=== PATIENT | male | born 1935 | race Caucasian/White ===

== ENCOUNTER 2019-10-06 15:38 | Inpatient (IN) ==
[2019-10-06] MEDS ORDERED: NS 1,000 ML IV ONE ×2 (15:44→15:55)
[2019-10-06] MEDS ORDERED: VITAMIN K IM ONE (15:44)
[2019-10-06] MEDS ORDERED: ZOFRAN IV ONE (15:45)
[2019-10-06] MEDS ORDERED: MORPHINE IV ONE (15:45)
[2019-10-06] MEDS ORDERED: SODIUM CHLORIDE 0.9% INJ ONE (15:45)
[2019-10-06] MEDS ORDERED: PEPCID IV ONE (15:45)
[2019-10-06] MEDS ORDERED: FLEET MINERAL OIL ENEMA PR ONE (16:31)
[2019-10-06 16:38] LABS: OCCULT BLOOD 1 NEGATIVE (NEGATIVE)
[2019-10-06 16:44] LABS: BASO# 0.02 X1000 (0.0-0.2); BASO% 0.3 % (0.0-0.8); EOS# 0.17 X1000 (0.0-0.7); EOS% 2.6 % (0.0-10.0); HEMATOCRIT 33.2 % (42.0-52.0); HEMOGLOBIN 9.9 g/dL (14.0-18.0); IMM GRAN# 0.02 X1000 (0.0-0.04); IMM GRAN% 0.3 % (0.0-0.5); LYMPH# 1.68 X1000 (1.2-3.4); LYMPH% 25.7 % (20.5-51.1); MCH 28.7 PG (27-31); MCHC 29.8 g/dL (33-37); MCV 96.2 FL (81-99); MONO# 0.59 X1000 (0.11-0.59); NEUT# 4.06 X1000 (1.4-6.5); NEUT% 62.1 % (42.2-75.2); PLT 165 X1000 (130-400); RBC 3.45 XMIL (4.7-6.1); RDW 16.4 % (11.5-14.5); WBC 6.54 X1000 (4.8-10.8)
[2019-10-06 16:54] LABS: INR 3.69; PROTIME 38.9 Seconds (11.0-16.0)
[2019-10-06 16:55] LABS: PTT 58.3 Seconds (22.3-41.8)
[2019-10-06 17:19] LABS: AGAP 13; ALBUMIN 3.2 g/dL (3.5-5.0); ALKALINE PHOSPHATASE 168 U/L (32-122); BUN 23 mg/dL (8-22); CALCIUM 8.9 mg/dL (8.8-10.2); CHLORIDE 106 mmol/L (98-107); COSMO 289; CREATININE 0.9 mg/dL (0.7-1.2); ESTIMATED GFR > 60; GLUCOSE 102 mg/dL (70-104); GOT 20 U/L (10-34); GPT 14 U/L (10-44); POTASSIUM 4.1 mmol/L (3.5-5.1); SODIUM 143 mmol/L (136-145); TCO2 24 mmol/L (25-35); TOTAL PROTEIN 6.5 g/dL (6.3-8.3)
--- NOTE | 2019-10-06 17:25 | EKG Report ---
Test Performed on : 10/06/2019 4:56:36 PM Test Reason : GI bleed Blood Pressure : / mmHG Vent. Rate : 081 BPM Atrial Rate : 076 BPM P-R Int : 000 ms QRS Dur : 186 ms QT Int : 498 ms P-R-T Axes : 000 -77 105 degrees QTc Int : 578 ms Ventricular-paced rhythm with frequent premature ventricular complexes. Abnormal ECG When compared with ECG of 23-MAY-2019 10:17, premature ventricular complexes. are now present Unconfirmed Result
--- NOTE | 2019-10-06 17:45 | PROVIDER DOCUMENTATION ---
This chart was entered by Joya Méndez Scribe, acting as scribe for Elbert Rodriguez MD. HPI-Abdominal Pain/GI Problem - General Stated Complaint: abd pain with rectal bleeding Time Seen by Provider: 10/06/19 15:38 Source: patient, EMS ([facility]) Allergies/Adverse Reactions: Patient Allergies Allergy/AdvReac Type Severity Reaction Status Date / Time amiodarone AdvReac SHORTNESS Verified 05/23/19 09:28 OF BREATH Home Medications: Home Medication List Medication Instructions Recorded Confirmed Last Taken Type Furosemide 40 mg PO DAILY PRN 06/28/14 10/06/19 12/11/15 07:00 History Levothyroxine Sodium 75 mcg PO DAILY 06/28/14 10/06/19 12/11/15 07:00 History Warfarin [Coumadin] 7 mg PO DIRECTED 10/23/18 10/06/19 Unknown History Ascorbic Acid [Vitamin C] 500 mg PO DAILY 10/06/19 10/06/19 Unknown History Atorvastatin Calcium 1 tab PO DAILY 10/06/19 10/06/19 Unknown History Carvedilol [Coreg] 1 tab PO DAILY 10/06/19 10/06/19 Unknown History Cholecalciferol (Vitamin D3) 1,000 unit PO DAILY 10/06/19 10/06/19 Unknown History [Vitamin D3] Famotidine [Pepcid] 1 tab PO BID 10/06/19 10/06/19 Unknown History Pantoprazole Sodium 1 tab PO DAILY 10/06/19 10/06/19 Unknown History Potassium Chloride 20 meq PO DIRECTED 10/06/19 10/06/19 Unknown History Sucralfate 1 tab PO 4XDAY 10/06/19 10/06/19 Unknown History Ubidecarenone [Coq-10] 200 mg PO DAILY 10/06/19 10/06/19 Unknown History Warfarin [Jantoven] 1 tab PO DAILY 10/06/19 10/06/19 Unknown History - History of Present Illness-ABD Nature of Presenting Problems: Pt is an 84 yowm brought into the ED by [facility] after his called because he had rectal bleeding after a hard bowel movement today. Pt his complaining of abdominal pain. pt is alert but pale in appearance. Abdominal Pain Onset Location: reports: generalized abdomen (Left side more than right) Quality of Pain: reports: aching Severity in ED: reports: mild Onset/Duration: reports: just prior to arrival Timing: reports: still present, constant Activities at Onset: reports: light activity Modifying Factors: improves with: defecating Associated Symptoms: reports: constipation. denies: cough, diarrhea, fever/chills, nausea, syncope, vomiting Last BM: this afternoon Rectal Bleeding: reports: bright red blood on paper Review of Systems - Adult - REVIEW OF SYSTEMS - ADULT Constitutional: denies: chills, fever Eyes: reports: no symptoms reported Ears, Nose, Mouth & Throat: reports: no symptoms reported Cardiovascular: denies: chest pain, syncope Respiratory: denies: cough, shortness of breath Gastrointestinal: reports: abdominal pain, constipation, rectal bleeding. denies: nausea, vomiting Genitourinary: reports: no symptoms reported Musculoskeletal: reports: no symptoms reported Integumentary: reports: no symptoms reported, see HPI Neurological: reports: no symptoms reported Psychiatric: reports: no symptoms reported Endocrine: reports: no symptoms reported Hematologic/Lymphatic: reports: no symptoms reported Allergic/Immunologic: reports: no symptoms reported All Other Systems: Reviewed and Negative Past History - Adult - PAST MEDICAL HISTORY-ADULT Review of Records: reports: Old Records Reviewed, Nursing Assessment Review, Medications Reviewed, Social history reviewed & non-contributory. Major Childhood Illnesses: reports: denies history Cardiovascular: reports: cardiac disease, HTN, heart valve problem, other (mechanical heart valve) Respiratory: reports: denies history Gastrointestinal: reports: GI bleed Obstetrical/Gynecological: reports: denies history Genitourinary: reports: denies history Musculoskeletal: reports: arthritis Neurological: reports: denies history, other (sleep apnea) Endocrine/Immune: reports: denies history Other Conditions: reports: denies history - PRIOR SURGERIES/PROCEDURES Surgical/Procedure History: reports: other (mechanical heart valve) - IMMUNIZATION STATUS Childhood Immunizations: See Nurse Assessment Flu Vaccine: See Nurse Assessment - FAMILY HISTORY Family History: reviewed, not pertinent - SOCIAL HISTORY Smoking: non-smoker Substance Use: denies Living Situation: family () Physical Exam-General - PHYSICAL EXAM-ADULT Initial Vital Signs Reviewed: Yes (hypotensive, otherwise stable) - CONSTITUTIONAL General Appearance: alert, no apparent distress, other (pale) - EYES Eyes: PERRL/EOMI, pale conjunctivae - HEAD, EARS, NOSE, MOUTH & THROAT HENMT: normocephalic/atraumatic, other (dry mucus membranes) - NECK Neck: non-tender, full range of motion - RESPIRATORY Respiratory: chest non-tender, lungs clear, no pleuratic chest pain, no respiratory distress, other (tachypneic) - CARDIOVASCULAR Cardiovascular: normal peripheral pulses, regular rate, rhythm, no edema, no g allop, no JVD, systolic murmur, other (metallic click heard best at apex) - GASTROINTESTINAL (ABDOMEN) Abdominal Exam: normal bowel sounds, soft, tenderness (generalized but left side more than right). negative: guarding, rebound, McBurney's point tenderness - GENITOURINARY Male Genitalia: normal genitalia, circumcised Rectal Exam: normal rectal tone, blood streaked stool, other (fecal impaction, hard stool, slight blood tinged liquid brown stool oozing around hard/chalky/brown stool) Hemoccult Exam: heme positive stool - LYMPHATIC Lymphatic: no adenopathy - MUSCULOSKELETAL Back Exam: normal inspection, no vertebral tenderness Extremity: normal range of motion, non-tender - SKIN Integumentary: ecchymosis (older, visible on arms and hands), pallor. negative: normal turgor (decreased) - PSYCHIATRIC Psych/Mental Status: normal thought content, normal thought process, oriented x 3, disheveled Progress - PLAN OF CARE/RESULTS Result Diagrams: 10/06/19 16:17 10/06/19 16:17 - REASSESSMENT Reassessment #1 Time Reassessed: 16:31 Status: improving (manually disimpacted about 1-1 1/2 cupfulls of stool) - EKG 1 Time of EKG reading by physician:: 17:12 EKG Read and Signed by:: Elbert Rodriguez EKG Interpretation (*Must complete 3 of following elements*): Abnormal Rate: 81 Rhythm: paste rhythm [place]: normal QRS: PVC's Comments: Ventricular-paced rhythm w/frequent premature venticular complexes - XRAY 1 XRAY Study: Chest Impression: See EMR Report - CT/MRI 1 CT Study: Abdomen Impression: See EMR Report - CONSULTS/PCP/HOSPITALIST Notification #1 *Consult/PCP/Hospitalist*: Dr. Naik Time Discussed: 17:34 (discussed POC) Consult Disposition: Admit #2 Consult: Samanta Time Discussed: 17:43 Reason/Comments: n Consult Disposition: Admit (to [facility]) Departure - Departure Date of Disposition Decision: 10/06/19 Time of Disposition Decision: 17:43 DIAGNOSIS: Fecal impaction in rectum, Anticoagulated on Coumadin GI bleeding Qualifiers: GI bleed type/associated pathology: anorectal hemorrhage Qualified Code(s): K62.5 - Hemorrhage of anus and rectum Disposition: ADMITTED INPATIENT 09 Certified Medical Emergency: Emergent Condition: Fair Referrals and Follow-Ups: Doctor,Unassigned [Primary Care Provider] - - Critical Care Note This patient required my direct & personal management of CC.: Yes Total Time (mins): 35 Critical Care Statement: This patient required my direct personal management to treat or rule out processes, the absence of which, could potentiallly result in sudden, clinically significant life or limb threatening deterioration. Attestation - Physician/ MINERVA Attestation Patient care was provided by Advanced Practice Provider:: No The physician spent face to face time with patient:: Yes Advanced Practice Provider documentation review:: Supervising physician onsite and consulted in the evaluation and care of this patient. The physician did have a face to face encounter with the patient. This chart was documented by the indicated scribe, (Joya Méndez, Blake) and accurately reflects the services I performed and decisions made by me, Elbert Rodriguez MD, as attested by the provider's signature.
--- NOTE | 2019-10-06 18:31 | Diag Imaging Result Doc PS360 ---
EXAM: CT ABD/PELVIS W/IV CONT ONLY INDICATION: colitis TECHNIQUE: This exam was performed using automated exposure control, adjustment of mA or kV according to patient size, and/or use of iterative reconstruction technique. COMPARISON: None. FINDINGS: There is cardiomegaly. There is fibrosis and subsegmental atelectasis at the lung bases as well as a trace loculated fluid collection at the left lung base. These findings appear stable as compared to a prior CTA chest dated 05/23/2019. The gallbladder is distended and the gallbladder wall is thickened. There is pericholecystic inflammatory stranding consistent with acute cholecystitis. There is mild thickening of the adjacent hepatic flexure of the colon. However, this is probably secondary to inflammation arising from the gallbladder. There is ill-defined hyperdense debris that appears to be in the distal common hepatic duct or proximal common bile duct likely representing ductal stones. No significant biliary dilatation is appreciated given the age of the patient, however. There is a tiny cystic appearing lesion associated with the medial right hepatic lobe inferiorly. There is slight periportal edema. The liver is unremarkable, otherwise. The spleen, pancreas, and adrenal glands are unremarkable. There are bilateral renal cysts and there is evidence of renal cortical scarring, most notably at the lower pole of the left kidney. There is bilateral nonobstructive nephrolithiasis. The urinary bladder is grossly unremarkable. In addition to the mild thickening of the hepatic flexure of the colon discussed above most likely representing secondary colitis due to the adjacent gallbladder inflammation, there is also mild duodenal thickening adjacent to the gallbladder fossa suggesting secondary mild duodenitis. No other colonic or bowel wall thickening is appreciated. There is mild thickening at the pylorus and antrum of the stomach, which could represent gastritis. It is slightly irregular. An underlying gastric mass cannot completely be excluded. There is a thick-walled loculated fluid collection with peripheral enhancement and surrounding stranding extending along the psoas muscle on the left to the dome of the urinary bladder that likely represents an abscess. There is a similar loculated fluid collection that is smaller along the right psoas muscle. On the left, the collection measures up to 5.0 x 4.2 cm axially and up to 19 cm in craniocaudal length. The collection on the left measures 1.4 x 2.4 cm axially and approximately 8 cm in craniocaudal length. There is extensive aortoiliac atherosclerotic disease. 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 IMPRESSION: 1.Findings consistent with acute cholecystitis. 2.Thickening of the hepatic flexure that is probably due to secondary colitis from the gallbladder that is directly adjacent to it. 3.Mild thickening of the proximal duodenum adjacent to the gallbladder that is likely secondary duodenitis. 4.Loculated fluid collections along the psoas muscles bilaterally with peripheral enhancement suggesting abscesses. 5.Somewhat irregular thickening near the pylorus of the stomach. Underlying mass cannot completely be excluded. 6.Other incidental/nonacute findings detailed above. Electronically signed by Jose Wiley 10/06/2019 6:28 PM
[2019-10-06] MEDS ORDERED: LASIX PO PRN (18:43)
[2019-10-06] MEDS: PROTONIX IV SCH (18:43)
--- NOTE | 2019-10-06 19:11 | Diag Imaging Result Doc PS360 ---
EXAM: CHEST-PORTABLE INDICATION: GI bleeding TECHNIQUE: One view COMPARISON: 06/04/2019 FINDINGS: There is evidence of prior granulomatous disease, stable. There is stable fibrosis at both lung bases, more prominent on the left. There is likely a possible small left effusion versus chronic pleural thickening at the left lung base. This is stable. There is stable cardiomegaly and a stable pacemaker/defibrillator. Median sternotomy wires and a prosthetic heart valve are noted. IMPRESSION: Stable fibrotic changes at the lung bases and stable cardiomegaly. Electronically signed by Jose Wiley 10/06/2019 7:09 PM
[2019-10-06] MEDS ORDERED: MORPHINE IV PRN (20:14)
[2019-10-06] MEDS: PEPCID PO SCH (20:27)
[2019-10-06] MEDS: ZOSYN 3.375 GM in NS 50 ML IV SCH (20:27)
[2019-10-06] MEDS: CARAFATE PO SCH (20:28)
--- NOTE | 2019-10-06 22:27 | HISTORY AND PHYSICAL ---
CHIEF COMPLAINT: Abdominal pain, rectal bleeding. HISTORY OF PRESENT ILLNESS: Mr. Medrano is an 84-year-old male who comes into the emergency room after having hard stools today with rectal bleeding. He was further disimpacted in the emergency room. They did note some streaking of blood but did not see any gross bleeding. His occult stool in the emergency room was negative. His hemoglobin and hematocrit are slightly lower than usual but stable at 9.[address] of his abdomen showed findings consistent with acute cholecystitis and thickening of the hepatic flexure that is probably due to secondary colitis from the gallbladder. He will be admitted from [facility] emergency room to the medical floor at [facility] for GI and surgical consultation. PAST MEDICAL HISTORY: Hypertension, hyperlipidemia, hypothyroidism, paroxysmal atrial fibrillation, systolic congestive heart failure, coronary artery disease, aortic stenosis, sleep apnea, retroperitoneal bleed. PREVIOUS SURGICAL HISTORY: Mechanical mitral valve replacement, pacemaker, coronary artery bypass, appendectomy, cataract surgery. SOCIAL HISTORY: He is a former smoker. No history of alcohol or illicit drugs. FAMILY HISTORY: Positive for coronary artery disease and hypertension. ALLERGIES: Amiodarone. HOME MEDICATIONS: Pantoprazole 40 mg p.o. daily, vitamin D3 of 1000 units p.o. daily, potassium chloride 20 mEq p.o. daily, CoQ10 of 200 mg p.o. daily, warfarin 7 mg as directed, warfarin 2.5 mg as directed, ascorbic acid 500 mg p.o. daily, atorvastatin 40 mg p.o. daily, Coreg 3.125 mg 1 p.o. daily, famotidine 20 mg p.o. b.i.d., Lasix 40 mg p.o. daily, levothyroxine 75 mcg p.o. daily, Carafate 1 g p.o. 4 times a day. REVIEW OF SYSTEMS: Fourteen-point review of systems conducted with the patient. He has complaint of abdominal pain which is epigastric and been ongoing for the past several weeks. Had some mild nausea but no vomiting. All other systems were reviewed and found to be negative. Other pertinent positives are listed above in the HPI. PHYSICAL EXAMINATION: VITAL SIGNS: Temperature 98.6, pulse 81, respirations 16, blood pressure 113/63, oxygen saturation 97% on room air. GENERAL: Pleasant 84-year-old male lying in the medical floor bed accompanied by his . He is alert and oriented times 3, in no acute distress. HEENT: Head is atraumatic, normocephalic. Pupils equal, round, reactive to light. Extraocular eye movement is intact. Sclera is anicteric. Conjunctiva is mildly pale. Oral mucosa is moist. NECK: Supple. No JVD. No thyromegaly. Trachea is midline. No cervical lymphadenopathy. CARDIAC: S1, S2 appreciated. Mild systolic murmur with mechanical click noted. No gallops. No rubs. LUNGS: Clear to auscultation bilaterally. No rhonchi, wheezes, rales. Symmetric rise and fall with respirations. ABDOMEN: Soft, nondistended, nontender. Bowel sounds present all 4 quadrants, normoactive. No pulsatile mass. No organomegaly. EXTREMITIES: No clubbing, cyanosis or edema. One-plus pedal pulses. Lower extremities are cool to touch. Chronic color change bilateral lower extremities likely associated with chronic venostasis. GENITOURINARY: No bladder distention. Patient voids. Otherwise deferred. NEUROLOGICAL: Alert and oriented times 3. No focal motor deficits. Otherwise nonfocal examination. DIAGNOSTIC DATA: Chest x-ray shows cardiomegaly with stable fibrotic changes at the lung base. A CT of the abdomen and pelvis shows acute cholecystitis, colitis secondary to gallbladder inflammation, loculated fluid collections along psoas muscle bilateral with peripheral enhancement suggesting abscesses, somewhat irregular thickening near the pylorus of the stomach, underlying mass cannot completely be excluded. LABORATORY DATA: WBC 6.54. Hemoglobin 9.9. Hematocrit 33.2. Platelet count 165. INR 3.69. Sodium 143. Potassium 4.1. Chloride 106. Carbon dioxide 24. BUN 23. Creatinine 0.9. Glucose 102. Occult stool negative. ASSESSMENT: 1. Acute cholecystitis with possible intraabdominal abscesses. We will consult GI as well as Dr. Aly with Surgery. He has been started on Zosyn 3.375 g IV. We will give morphine as needed for pain. 2. Gastrointestinal bleed. I believe this was related to hard stools. The patient is on Coumadin anticoagulation. He is within his normal reference range of 3.5 to 4.5. He was given 0.5 mg IM of vitamin K in the emergency room. We will hold his Coumadin at this time. We will defer to GI, Surgery and Dr. Gil when to restart Coumadin. 3. Mitral valve replacement with Coumadin anticoagulation. 4. History of retroperitoneal bleed. 5. Anemia. 6. Congestive heart failure with ejection fraction in the 20s. PLAN: As noted, he will be on the medical floor. We will continue to monitor. We will restart his home medications. Hold NPO other than home medications. As noted, Coumadin will be held. INR will be checked daily. Further recommendations per patient clinical course. Dictated by PUNEET Mckeon for Gryeson Ruelas MD I have performed a face to face diagnostic evalulation. Labs/Xrays- reviewed. Exam- Chest- clear, CV- regular, Abd- mild tenderness A/P- Acute cholecystitis, GI Bleed- Admit, NPO, General surgery and GI consult. Dr. Suraj Best#: [phone] cc: PUNEET Mckeon MD [facility]
[2019-10-07 00:51] LABS: HEMATOCRIT 31.4 % (42.0-52.0); HEMOGLOBIN 9.6 g/dL (14.0-18.0)
[2019-10-07 01:07] LABS: URINE SOURCE CLEAN CATCH
[2019-10-07] MEDS: ZOSYN 3.375 GM in NS 50 ML IV SCH ×4 (01:14→22:35)
[2019-10-07 02:02] LABS: BILIRUBIN URINE NEGATIVE (NEGATIVE); BLOOD URINE NEGATIVE (NEGATIVE); COLOR YELLOW; GLUCOSE URINE NEGATIVE (NEGATIVE); KETONE URINE NEGATIVE (NEGATIVE); LEUKOCYTES URINE NEGATIVE (NEGATIVE); NITRITE URINE NEGATIVE (NEGATIVE); PROTEIN URINE NEGATIVE (NEGATIVE); SP GRAVITY URINE 1.046; TURBIDITY URINE CLEAR (CLEAR); UR EPITHELIAL CELLS <10 /HPF (<10); URINE BACTERIA NEGATIVE /HPF; URINE RBC <10 /HPF (<10); URINE WBC <10 /HPF (<10); UROBILINOGEN URINE NORMAL (NORMAL)
[2019-10-07] MEDS: SODIUM CHLORIDE 0.9% INJ SCH ×2 (06:10→19:32)
[2019-10-07] MEDS: SYNTHROID PO SCH (06:10)
[2019-10-07] MEDS: PROTONIX IV SCH ×2 (06:10→19:32)
[2019-10-07 06:41] LABS: BASO# 0.02 X1000 (0.0-0.2); BASO% 0.3 % (0.0-0.8); EOS# 0.16 X1000 (0.0-0.7); HEMOGLOBIN 9.8 g/dL (14.0-18.0); LYMPH# 1.72 X1000 (1.2-3.4); LYMPH% 21.5 % (20.5-51.1); MCH 28.7 PG (27-31); MCHC 29.7 g/dL (33-37); MCV 96.8 FL (81-99); MONO# 0.55 X1000 (0.11-0.59); MONO% 6.9 % (1.7-9.3); MPV 9.9 FL (7.4-10.4); NEUT# 5.55 X1000 (1.4-6.5); NEUT% 69.3 % (42.2-75.2); PLT 141 X1000 (130-400); RBC 3.41 XMIL (4.7-6.1); RDW 16.4 % (11.5-14.5)
[2019-10-07 06:50] LABS: INR 3.15; PROTIME 33.3 Seconds (11.0-16.0)
[2019-10-07 07:22] LABS: AGAP 13; ALKALINE PHOSPHATASE 155 U/L (32-122); BUN 20 mg/dL (8-22); CHLORIDE 104 mmol/L (98-107); COSMO 285; CREATININE 1.1 mg/dL (0.7-1.2); ESTIMATED GFR > 60; GLUCOSE 87 mg/dL (70-104); GOT 18 U/L (10-34); GPT 10 U/L (10-44); POTASSIUM 4.6 mmol/L (3.5-5.1); SODIUM 142 mmol/L (136-145); TCO2 25 mmol/L (25-35); TOTAL BILIRUBIN 0.66 mg/dL (0.20-1.00)
[2019-10-07] MEDS: COREG PO SCH (08:34)
[2019-10-07] MEDS: CARAFATE PO SCH ×4 (08:34→22:35)
[2019-10-07] MEDS: LIPITOR PO SCH (08:34)
[2019-10-07] MEDS: PEPCID PO SCH (08:34)
[2019-10-07] MEDS: VITAMIN C PO SCH (08:34)
[2019-10-07] MEDS ORDERED: MIRALAX PO ONE (11:42)
[2019-10-07] MEDS: MIRALAX PO SCH (11:44)
[2019-10-07] MEDS: NS 1,000 ML IV SCH (11:45)
--- NOTE | 2019-10-07 13:28 | GENERAL SURGERY CONSULTATION ---
DATE: 10/07/2019 HISTORY OF PRESENT ILLNESS: Mr. Medrano is an 84-year-old gentleman who has had an eventful past 4 months. He presented last night with some bleeding and impaction. He apparently was disimpacted and his hemoglobin is a little bit lower than expected so he was admitted. He also had a CT scan showing acute cholecystitis. According to his , he has had a couple of episodes of some abdominal discomfort and vomiting in the past month or so. Prior to, he has been home for a month after being in rehab. He was admitted in [place] in May and was found to have retroperitoneal bleeds requiring transfusion and even interventional radiology apparently to occlude the vessels that were causing the bleeding. He developed acute renal failure and required dialysis for 1 week and finally was able to be discharged to rehab. He then has been home for about 1 month and then this most recent episode occurred. PAST MEDICAL HISTORY AND SURGICAL HISTORY: His past history is pertinent for hypertension, hyperlipidemia, hypothyroidism, paroxysmal atrial fibrillation, a history of systolic congestive heart failure, coronary artery disease, aortic stenosis, sleep apnea. He has had a mechanical mitral valve for a few years placed in [place]. He has a pacemaker, coronary bypass, appendectomy, and cataract surgery. MEDICATIONS: Listed and include Coumadin. ALLERGIES: He has an allergy to amiodarone. SOCIAL HISTORY: He is former smoker. He has an attentive at his side. He denies alcohol or illicit drug use. FAMILY HISTORY: Pertinent for coronary disease and hypertension. REVIEW OF SYSTEMS: Noted for constipation and recent impaction, in addition to all the recent problems in the hospital at [place]. PHYSICAL EXAMINATION: Vital Signs: On physical exam, he is afebrile. Heart rate 80, respiratory rate 16, blood pressure 98/56. Neck: He has no cervical adenopathy. Lungs: Bilateral breath sounds. Heart: Irregular rate and rhythm. Abdomen: Soft. He is not particularly tender. He is only mildly tender in the upper abdomen. Extremities: Femoral pulses are present. No peripheral edema. Central Nervous System: He is awake and alert. DIAGNOSTIC DATA: White count is 8000, hemoglobin 9.6, hematocrit 31. His prothrombin time is 33 with an INR 3.1. His alkaline phosphatase is 155. Total bilirubin 0.66. CT scan shows a dilated gallbladder with inflammatory changes surrounding it with a thickened wall and possible stones in his gallbladder, possibly even his common duct. ASSESSMENT AND PLAN: Probable acute cholecystitis. He does not appear septic from this. I agree with antibiotic therapy, and then we ultimately can correct his coagulopathy in preparation for a laparoscopic cholecystectomy. cc: Ricardo Naylor MD
--- NOTE | 2019-10-07 13:48 | GASTROENTEROLOGY CONSULTATION ---
DATE: 10/07/2019 REASON FOR CONSULT: GI bleed. HISTORY OF PRESENT ILLNESS: Mr. Medrano is an 84-year-old male with a history of coronary artery disease, atrial fibrillation, congestive heart failure and history of pacemaker. He had gone to [facility] last night and then came to the [facility] with complains of not able to use the toilet and that he did notice some streaks of blood, but did not see any major bleeding. The patient has been mentioning that he has been constipated for the last 1 week onwards and he does have lower abdominal pain. His at the bedside mentioned that he has been in and out of the hospital since May 23 where he had an infection and cellulitis of the left calf and he had a blood clot. They removed the blood clot and the patient is on Coumadin. He was at [facility] and per he had received 10 units of blood and also was on dialysis for 08/05 for a week. As per her, she said that he was then sent to [facility] where he had a 2nd bleeding episode and received 2 units of blood. After that, he was in the rehab and then she mentioned that he had an episode of UTI. The patient has been in and out of the hospital and to the rehab from May 23 to August 30. The mentioned that the patient has lost approximately 40 pounds in the last few months. The patient does have a pacemaker. He also mentioned that he had fallen on Monday on his back and his buttocks are sore at present. The patient's hemoglobin on admission was 9.9 and 33.2. Today, his hemoglobin is 9.8 and 33.0. The patient's abdomen and pelvis CT on 10/06 had shown that the patient has got acute cholecystitis, thickening of the hepatic flexure that is probably due to the secondary colitis from the gallbladder that is directly adjacent to it. Mild thickening of the proximal duodenum adjacent to the gallbladder. Loculated fluid collection along the psoas muscles bilaterally with peripheral enhancement suggesting abscesses somewhat irregular thickening at the pylorus of the stomach. Underlying mass cannot be excluded. His chest x-ray yesterday showed that he has stable fibrotic changes of the lung bases and stable cardiomegaly. PAST MEDICAL HISTORY: Hypertension, hyperlipidemia, hypothyroidism, atrial fibrillation, congestive heart failure, coronary artery disease status post pacemaker, aortic stenosis, sleep apnea, and bleeding in the lower extremities. SURGICAL HISTORY: Mechanical mitral valve replacement, pacemaker, coronary artery bypass, appendectomy, cataract surgery, and clot removed in the left calf. SOCIAL HISTORY: He is a former smoker. No history of alcohol or illicit drug use. He is and lives with his . FAMILY HISTORY: Positive for coronary artery disease and hypertension. ALLERGIES: He is allergic to amiodarone. HOME MEDICATIONS: Furosemide 40 mg daily, levothyroxine 75 mcg daily, warfarin 7 mg as directed, vitamin C 500 mg daily, atorvastatin calcium 40 mg 1 tablet daily, Coreg 1 tablet daily, vitamin D3 1000 units daily, Pepcid 20 mg twice a day, Protonix 40 mg 1 tablet daily, potassium chloride 20 mEq 1 tablet daily, ubidecarenone 200 mg daily, warfarin 2.5 mg 1 tablet daily, Carafate 1 tablet 4 times a day. REVIEW OF SYSTEMS: As per HPI. Otherwise, 12 point review of system is negative. PHYSICAL EXAMINATION: Vital Signs: Temperature 98.1, pulse 80, respirations 16, blood pressure 98/56, oxygen saturation 97%. The patient is on room air. His weight is 159 pounds. BMI is 21.6 kg/m2. General: He is alert, oriented x3, and in no acute distress. Answering questions appropriately. HEENT: Pale conjunctivae. No icterus. Neck: Supple. Lungs: Clear to auscultation in the anterior ahumada. Cardiovascular: Regular rate and rhythm. Abdomen: Soft, nontender, nondistended. Tender in the lower quadrant. Active bowel sounds heard in all 4 quadrants. Extremities: No clubbing, no cyanosis, no edema. Pedal pulses 2+ present bilaterally. Neurologic: Alert oriented x3. Nonfocal. Cranial nerves 2-12 grossly intact. LABORATORY DATA: WBC is 8.0, RBCs 3.41, hemoglobin 9.8, hematocrit 33.0, platelet count is 141,000. PT 33.3, INR is 3.15, sodium 142, potassium 4.6, chloride 104, carbon dioxide 25, anion gap 13, BUN 20, creatinine 1.1, glucose 87, calcium 9.0, total bilirubin 0.6, his AST 18, ALT 10, alkaline phos 155. Urinalysis has been negative. IMPRESSION: 1. Gastrointestinal bleed. 2. Constipation. 3. Acute cholecystitis with possible abscesses. 4. Mitral valve replacement 5. Coronary artery disease, status post pacemaker. 6. Congestive heart failure. 7. Weight loss 40 lbs in last few months 8. Anemia 9. Coagulopathy secondary to coumadin. PLAN: Mr. Medrano is a 84 year old male with the history of pacemaker and mechanical mitral valve. The patient is currently on vitamin K 0.5 mg IM. He is receiving GI prophylaxis, Protonix 40 mg IV twice a day. The patient is on antibiotic Zosyn and is receiving IV fluids normal saline at 75 mL and for his bowel regimen he is on MiraLAX and Dulcolax. Surgery has been consulted for his cholecystitis. We will continue to monitor the patient and follow the plan of the Surgeon and PCP. This plan was discussed with Dr. Portillo. Thank you for your consult. Please call us for any further questions or concerns. Dictated by PUNEET Schwartz for Oliver Portillo MD cc: Oliver Portillo MD I have seen and examined the patient myself and I agree with the above plan of care. Discussed the above with the patient and family and all questions were answered. Spoke to Dr Naylor and he plans to perform cholecystectomy in few days once INR is reversed. Please call us with any further questions. ALIDA
[2019-10-07] MEDS: DULCOLAX PR SCH (22:35)
[2019-10-08] MEDS: NS 1,000 ML IV SCH (05:46)
[2019-10-08] MEDS: SODIUM CHLORIDE 0.9% INJ SCH (05:47)
[2019-10-08] MEDS: ZOSYN 3.375 GM in NS 50 ML IV SCH ×4 (05:47→23:04)
[2019-10-08] MEDS: PROTONIX IV SCH ×3 (05:47→17:18)
[2019-10-08 06:54] LABS: BASO# 0.01 X1000 (0.0-0.2); BASO% 0.2 % (0.0-0.8); EOS# 0.11 X1000 (0.0-0.7); EOS% 1.9 % (0.0-10.0); HEMATOCRIT 28.7 % (42.0-52.0); HEMOGLOBIN 8.7 g/dL (14.0-18.0); LYMPH# 1.28 X1000 (1.2-3.4); LYMPH% 21.6 % (20.5-51.1); MCH 29.3 PG (27-31); MCHC 30.3 g/dL (33-37); MCV 96.6 FL (81-99); MONO# 0.53 X1000 (0.11-0.59); MPV 10.4 FL (7.4-10.4); NEUT# 3.99 X1000 (1.4-6.5); NEUT% 67.3 % (42.2-75.2); PLT 127 X1000 (130-400); RBC 2.97 XMIL (4.7-6.1); RDW 16.3 % (11.5-14.5); WBC 5.92 X1000 (4.8-10.8)
[2019-10-08] MEDS: SYNTHROID PO SCH (06:55)
[2019-10-08 07:14] LABS: INR 2.88
[2019-10-08 07:23] LABS: ALB/GLOB RATIO 1.1; ALBUMIN 2.6 g/dL (3.5-5.0); DIRECT BILIRUBIN 0.3 mg/dL (0.00-0.20); TOTAL BILIRUBIN 0.77 mg/dL (0.20-1.00); TOTAL PROTEIN 4.9 g/dL (6.3-8.3)
[2019-10-08] MEDS: LIPITOR PO SCH (09:02)
[2019-10-08] MEDS: VITAMIN C PO SCH (09:02)
[2019-10-08] MEDS: MIRALAX PO SCH (09:02)
[2019-10-08] MEDS: CARAFATE PO SCH ×4 (09:02→23:04)
[2019-10-08] MEDS: COREG PO SCH (09:02)
--- NOTE | 2019-10-08 09:30 | PROGRESS NOTE ---
DATE: 10/08/2019 Mr. Medrano is feeling pretty good. He is asking for some food. I am going to try him on a soft gastrointestinal diet. OBJECTIVE: Vital Signs: He remains afebrile, temperature 97.9 degrees, pulse 80, respirations 15, blood pressure 109/60. HEENT: Pupils are equal and round. Lungs: Are clear in all lung ahumada. Cardiovascular: Regular rhythm and rate without murmur or S3. Abdomen: Is soft. Skin: Is warm and dry. Urine output is 1800 mL. ASSESSMENT AND PLAN: 1. Probable acute cholecystitis. He does not appear septic. We are going to continue antibiotics and correct his coagulopathy. We are holding the Coumadin. His pro time is down to 31, it was 38, and then the plan is to put him on heparin because of his mechanical mitral valve. 2. Mechanical mitral valve, hemodynamically stable. 3. History of retroperitoneal bleed in the past, bilateral. Aware. 4. History of anemia. 5. History of congestive heart failure. Ejection fraction estimated to be in the 20s. Volume status looks good. Blood pressure looks good. We will put him on a soft gastrointestinal diet. Continue to check pro times every day. Electrolytes look okay. He has normocytic anemia. His hematocrit 28, hemoglobin 8.7. Continue to follow. cc: MD Marcelino Washington MD
--- NOTE | 2019-10-08 14:30 | GENERAL SURGERY PROGRESS NOTE ---
DATE: 10/08/2019 Mr. Medrano is afebrile. Heart rate 80, blood pressure 1099/60. He is sleeping but easily arousable. His abdomen is not particularly tender. White count is 5900, hemoglobin 8.7, hematocrit 28. PT 31, INR 2.9. Total bilirubin 0.77, alkaline phosphatase 130, which is an improvement. PLAN: The plan will be to take his gallbladder out laparoscopically once his coagulopathy is resolved. I anticipate that will be or Monday of this week. He understands the plan. cc: MD Marcelino Jackson MD
--- NOTE | 2019-10-08 18:12 | GASTROENTEROLOGY PROGRESS NOTE ---
DATE: 10/08/2019 SUBJECTIVE: Resting in bed. He is feeling better. Denies any fevers, rigors, chills. He is eating better. He has not had a bowel movement yet. OBJECTIVE: Vital signs: Temperature 97.7, pulse rate of 80, respiratory rate of 18, blood pressure 100/50 saturating 98% room air. Body weight of 159 pounds 6.4 ounces. BMI 21.6 kg. General: Thinly built, lying in bed, in no acute distress. HEENT: Pale conjunctivae. No icterus. Neck: Supple. Abdomen: Discomfort in the right upper quadrant. No rebound or guarding. Extremities: No cyanosis, clubbing. Neurologic: Alert, awake, and oriented to time, place, and person. LABORATORY DATA: Hemoglobin and hematocrit is 8.7 and 28.7, white count of 5.92. Platelet count of 127,000. INR of 2.8, PT of 31, total bilirubin is 0.77, direct of 0.3. AST 14, ALT 9, alkaline phosphatase 130, total protein 4.9, albumin of 2.6. Stool culture was negative. Blood culture x2 negative 48 hours. IMPRESSION AND PLAN: 1. Probable acute cholecystitis. He is being followed by Dr. Naylor. The plan is to perform cholecystectomy once his coagulopathy improves. His Coumadin has been withheld and he has been given vitamin K, per the primary team. 2. Coagulopathy secondary to Coumadin. 3. Mitral valve replacement mechanical type. Aware. 4. History of retroperitoneal bleed in the past, bilateral, aware. 5. Anemia. Aware. We will start him on multivitamins daily. 6. Watch his blood counts and transfuse as needed. 7. History of congestive heart failure. Being monitored by the primary team. 8. There was initially a question of gastrointestinal bleed but his Hemoccult is negative. We will continue to watch blood counts. 9. Constipation. He is on bowel regimen. 10. Coronary artery disease status post pacemaker. Aware. 11. Weight loss of 40 pounds in the last few months. Aware. 12. Gastrointestinal prophylaxis with proton pump inhibitors. 13. We will follow along. The above plans were discussed with the patient and all questions answered. Please call with any further questions. cc: MD Marcelino Jesus MD
[2019-10-08] MEDS: DULCOLAX PR SCH (23:04)
[2019-10-09 07:31] LABS: INR 2.86; PROTIME 30.8 Seconds (11.0-16.0)
[2019-10-09] MEDS: PROTONIX IV SCH ×2 (07:46→17:42)
[2019-10-09] MEDS: ZOSYN 3.375 GM in NS 50 ML IV SCH ×3 (07:46→18:56)
[2019-10-09] MEDS: SODIUM CHLORIDE 0.9% INJ SCH ×2 (07:47→17:42)
[2019-10-09] MEDS: SYNTHROID PO SCH (07:47)
--- NOTE | 2019-10-09 09:15 | PROGRESS NOTE ---
DATE: 10/09/2019 SUBJECTIVE: Mr. Medrano says he feels pretty good. He is not really enjoying the soft diet, does not like the food, but otherwise no pain. He remains afebrile. OBJECTIVE: Vital Signs: Temperature 97.5 degrees, pulse 80, respirations 16, blood pressure 106/66. Eyes: Pupils are equal and round. Lungs: Lungs are clear in all lung ahumada. Cardiovascular exam: Regular rhythm and rate without murmur or S3. : Urine output is 1600 mL. ASSESSMENT: 1. Probable acute cholecystitis. Followed by Dr. Portillo and Dr. Naylor, the surgeon. Possibility of surgery tomorrow or Monday. His Coumadin has been held. 2. Coagulopathy secondary to Coumadin. His pro time is down to 30, so we will need his pro time to be down close to 15, doubt he has surgery tomorrow. 3. Mechanical mitral valve. Aware. 4. History of retroperitoneal bleed, right and left side in the past. Aware. 5. History of anemia. 6. History of congestive heart failure. His ejection fraction was 20%. His volume status looks pretty good. LABORATORY DATA: Review of his lab: Chemistries this morning include sodium 142, potassium 4.6, chloride 104. BUN 20, creatinine 1.1. Hematocrit is 28, hemoglobin 8.7, white count 5920, platelet count 127,000. PLAN: So, continue present orders. Waiting for the pro time to come down. cc: MD Marcelino Washington MD
--- NOTE | 2019-10-09 09:46 | GENERAL SURGERY PROGRESS NOTE ---
DATE: 10/09/2019 OBJECTIVE: He is afebrile, heart rate 81, blood pressure 106/66. He denies any significant pain. His protime is down to 30, his INR is 2.86. It needs to come down more before we plan cholecystectomy. PLAN: We will continue to follow this. cc: MD Marcelino Jackson MD
[2019-10-09] MEDS: CENTRUM SILVER PO SCH (10:54)
[2019-10-09] MEDS: CARAFATE PO SCH ×4 (10:54→21:26)
[2019-10-09] MEDS: LIPITOR PO SCH (10:54)
[2019-10-09] MEDS: MIRALAX PO SCH (10:54)
[2019-10-09] MEDS: COREG PO SCH (10:55)
[2019-10-09] MEDS: VITAMIN C PO SCH (10:55)
[2019-10-09] MEDS ORDERED: CALMOSEPTINE OINTMENT TOP PRN (13:49)
[2019-10-09] MEDS: NS 1,000 ML IV SCH (15:35)
--- NOTE | 2019-10-09 17:20 | GASTROENTEROLOGY PROGRESS NOTE ---
DATE: 10/09/2019 SUBJECTIVE: Resting in bed. His is at bedside. Patient is feeling better. He is eating well. He denies any fevers, rigors, or chills. He denies any nausea or vomiting. OBJECTIVE: Vital Signs: Temperature 97.6 degrees, pulse rate of 80, respiratory rate 20, blood pressure 99/51, saturating 98% on room air. Body weight of 159 pounds, 6.4 ounces. BMI 21.6 kg. General: He is moderately well nourished, lying in bed, in no acute distress. HEENT: Pale conjunctivae. No icterus. Pupils equal, reactive to light and accommodation. Neck: Supple. Abdomen: Soft, mild discomfort in the right upper quadrant. No rebound or guarding. Extremities: No cyanosis or clubbing. Neurologic: Alert, awake, oriented x3. LABS: No labs were done today other than INR of 2.86, PT of 30.8. Hemoglobin and hematocrit yesterday was 8.7 and 28.7. His AST was 14, ALT 9, alkaline phosphatase 130, total protein 4.9, albumin of 2.6. Total bilirubin is 0.77. Blood culture x2 negative at 48 hours. IMPRESSION AND PLAN: 1. Acute cholecystitis. He is being followed by Dr. Naylor. The plan is to perform cholecystectomy once the INR is corrected. 2. Coagulopathy secondary to Coumadin. His Coumadin was withheld. His INR continues to be high. He will be getting vitamin K per the primary team. 3. Mechanical mitral valve. Aware. 4. History of retroperitoneal bleed, right and left side in the past. Aware. 5. Anemia. Continue to watch for now and transfuse as needed to keep the hemoglobin more than 7 g/dL. 6. Constipation. We will put him on bowel regimen with Dulcolax and MiraLAX. 7. Congestive heart failure. Aware. 8. Initially there was a question of rectal bleeding but his Hemoccult is negative. His last colonoscopy was more than 15 years ago. He has never had an EGD done the past. The plan is to perform EGD and colonoscopy as an outpatient once he heals from cholecystectomy unless there is an acute change in his clinical status. 9. Coronary artery disease, status post pacemaker. Aware. 10. Weight loss of 40 pounds in the last few months. Aware. 11. We will follow along. The above plan was discussed with the patient and family and all questions answered. Please call us with any further questions. cc: MD Marcelino Jesus MD Dr. Walker
[2019-10-09] MEDS: DULCOLAX PR SCH (21:26)
[2019-10-10] MEDS: ZOSYN 3.375 GM in NS 50 ML IV SCH ×4 (01:38→18:20)
[2019-10-10] MEDS: SODIUM CHLORIDE 0.9% INJ SCH ×2 (06:24→18:20)
[2019-10-10] MEDS: PROTONIX IV SCH ×2 (06:24→18:20)
[2019-10-10] MEDS: SYNTHROID PO SCH (06:24)
[2019-10-10] MEDS: NS 1,000 ML IV SCH ×2 (06:24→07:34)
[2019-10-10] MEDS ORDERED: NS 500 ML IV ONE (07:46)
[2019-10-10 08:07] LABS: INR 2.9; PROTIME 31.2 Seconds (11.0-16.0)
[2019-10-10] MEDS: LIPITOR PO SCH (10:40)
[2019-10-10] MEDS: CENTRUM SILVER PO SCH (10:40)
[2019-10-10] MEDS: COREG PO SCH (10:40)
[2019-10-10] MEDS: CARAFATE PO SCH ×4 (10:41→21:30)
[2019-10-10] MEDS: VITAMIN C PO SCH (10:41)
[2019-10-10] MEDS: MIRALAX PO SCH (10:41)
--- NOTE | 2019-10-10 12:08 | GASTROENTEROLOGY PROGRESS NOTE ---
DATE: 10/10/2019 SUBJECTIVE: The patient is resting in the chair. His was at bedside. The patient is feeling better. He had a hard stool today after a few days. OBJECTIVE: Vital Signs: Temperature 97.5 degrees, pulse of 80, respiratory rate 16, blood pressure 104/50, saturating 90% on room air. Body weight of 159 pounds 6.4 ounces, BMI 21.6 kg/m2. General: The patient is thinly built, sitting in chair in no acute distress. HEENT: Pale conjunctivae. No icterus. Neck: Supple. Abdomen: Discomfort in the right upper quadrant. No rebound. No guarding. Extremities: No cyanosis, clubbing. Neurologic: He is awake, alert, and sitting in bed. LABORATORY DATA: 1. INR is 2.9, PTT of 31.2. 2. Blood culture x2 negative at 48 hours. IMPRESSION AND PLAN: 1. Acute cholecystitis. Plan is to do cholecystectomy likely tomorrow once INR is corrected. He is going to get fresh frozen plasma today. I spoke with Dr. Gil about it. 2. Coagulopathy secondary to Coumadin, which has been withheld. INR continues to be high. Fixing to get fresh frozen plasma likely today. 3. Mechanical mitral valve. Aware. 4. Constipation. Will continue on bowel regimen with MiraLAX and Dulcolax. 5. Anemia. Continue to watch for now. Transfuse as needed. 6. History of retroperitoneal bleed in the past on the right and left side. He has been in and out of the hospital since May of this year. Previously, he was at [facility]. 7. Congestive heart failure. Aware. 8. Coronary artery disease, status post pacemaker. Aware. 9. Weight loss of 40 pounds in the last few months. Aware. 10. We discussed the possibility of doing esophagogastroduodenoscopy and colonoscopy as an outpatient for workup of anemia, but it will all depend on his overall health and clinical course. For now, we have to take care of acute cholecystitis, and then he will follow up with us as an outpatient. The above plans were discussed with the patient and family and with Dr. Gil. All questions were answered. Please call with any further questions. cc: MD Marcelino Jesus MD
--- NOTE | 2019-10-10 19:55 | GENERAL SURGERY PROGRESS NOTE ---
DATE: 10/10/2019 Mr. Medrano is afebrile with stable hemodynamics. His pro time today is 31. It really has not changed over the past [address] Gil plans to give him some fresh frozen in the morning in anticipation of proceeding with a cholecystectomy tomorrow. I have discussed the plan with Mr. Medrano. He understands and agrees. cc: MD Marcelino Jackson MD
[2019-10-10 20:02] LABS: INR 2.29; PROTIME 25.8 Seconds (11.0-16.0)
[2019-10-10] MEDS: DULCOLAX PR SCH (21:30)
[2019-10-11] MEDS: ZOSYN 3.375 GM in NS 50 ML IV SCH ×3 (00:39→12:32)
[2019-10-11] MEDS ORDERED: EPINEPHRINE SYRINGE IV ONE (01:00)
[2019-10-11] MEDS ORDERED: CORDARONE IV ONE (01:00)
[2019-10-11] MEDS: SODIUM CHLORIDE 0.9% INJ SCH (05:20)
[2019-10-11] MEDS: PROTONIX IV SCH (05:20)
[2019-10-11] MEDS: SYNTHROID PO SCH (06:00)
[2019-10-11 08:07] LABS: INR 2.5; PROTIME 27.7 Seconds (11.0-16.0)
[2019-10-11] MEDS: CENTRUM SILVER PO SCH (08:56)
[2019-10-11] MEDS: CARAFATE PO SCH ×4 (08:56→17:21)
[2019-10-11] MEDS: VITAMIN C PO SCH (08:56)
[2019-10-11] MEDS: LIPITOR PO SCH (08:56)
[2019-10-11] MEDS: COREG PO SCH (08:56)
[2019-10-11] MEDS ORDERED: NS 500 ML IV PRN (09:11)
[2019-10-11] MEDS: MIRALAX PO SCH (10:01)
[2019-10-11] MEDS ORDERED: DIPRIVAN 1% ONE (10:27)
[2019-10-11] MEDS ORDERED: ZEMURON ONE ×2 (10:27→13:22)
[2019-10-11] MEDS ORDERED: XYLOCAINE-MPF 2% ONE ×2 (10:27→13:22)
[2019-10-11] MEDS ORDERED: NEO-SYNEPHRINE ONE (13:22)
[2019-10-11] MEDS ORDERED: AMIDATE ONE (13:22)
[2019-10-11] MEDS ORDERED: QUELICIN (DOSE) ONE (13:22)
[2019-10-11] MEDS ORDERED: LR 1,000 ML ONE (13:51)
[2019-10-11] MEDS ORDERED: SODIUM CHLORIDE 0.9% ONE (13:51)
[2019-10-11] MEDS ORDERED: SENSORCAINE-MPF 0.5%/EPI 1:200,000 ONE (13:51)
[2019-10-11] MEDS ORDERED: DECADRON ONE (14:47)
[2019-10-11] MEDS ORDERED: ZOFRAN ONE (14:47)
[2019-10-11] MEDS ORDERED: FENTANYL ONE (14:47)
[2019-10-11] MEDS ORDERED: ROBINUL ONE (15:36)
[2019-10-11] MEDS ORDERED: NEOSTIGMINE ONE (15:37)
--- NOTE | 2019-10-11 16:10 | PROVIDER PROGRESS NOTE ---
Progress Note S: No acute overnight events. No overt GI bleeding. He is NPO for cholecystectomy today. O: Last Vital Signs Temp 97.4 F L 10/11/19 13:52 Pulse 79 10/11/19 13:52 Resp 19 10/11/19 13:52 BP 100/58 10/11/19 13:52 Pulse Ox 98 10/11/19 13:35 Height 6 ft Weight 159 lb 6.4 oz LABS: INR 2.5 A/P: Mr. Julian Medrano is a 84 year old man withi history of CHF, CAD s/p pacemaker, mechanical mitral valve replacement on coumadin, h/o RP bleed, and chronic anemia who presented with acute cholecystitis. GI consulted for concern for GI bleeding. FOBT negative. Patient reports occasional streaks of BRBPR in setting of constipation. He has had 40 pound weight loss since May when he was hospitalized with RP bleed requiring surgery, HD for renal failure, and prolonged hospital stay. Since then, he has not had an appetite. He will need diagnostic EGD and colonoscopy as outpatient when he recovers from surgery. Will check iron studies, B12, and folate now. Transitioned PPI IV BID to PO once daily. # Anemia: stable: anemia workup as above # Acute cholecystitis: CCY per surgery; currently NPO # Constipation: on bowel regimen # Mechanical MVR: holding warfariny # Abnormal weight loss: recommend outpatient EGD/colonoscopy Will follow with you. Please call with questions.
--- NOTE | 2019-10-11 16:33 | OPERATIVE NOTE ---
PROCEDURE DATE: 10/11/2019 PROCEDURE: 1. Tube cholecystostomy. 2. Biopsy of gallbladder wall. SURGEON: Ricardo Naylor MD DEVELOPER EVANGELIST: Eloise. PREOPERATIVE DIAGNOSIS: Chronic calculous cholecystitis. POSTOPERATIVE DIAGNOSES: 1. Chronic calculous cholecystitis. 2. Rule out malignancy. DESCRIPTION OF PROCEDURE: Satisfactory general endotracheal anesthesia was achieved, the abdomen was prepped and draped in a sterile fashion. We anesthetized skin below the umbilicus, incised the skin, scored the fascia, introduced 11 trocar Optiview technique. We insufflated through this trocar. Under direct visualization, 5 trocar in midclavicular line, 5 trocar near the anterior axillary line, 11 mm trocar in the midepigastrium. There was attachment to the anterior abdominal wall, and we with some difficulty some of this, and in fact entered the fundus of the gallbladder, which was attached to the anterior abdominal wall. So, we did have an opening into the fundus of the gallbladder that probably was open for 33% of the circumference of the gallbladder wall. The posterior 66% was still attached to the anterior abdominal wall. The gallbladder was very hard. It was quite difficult to dissect the omentum off the fundus going down to the infundibulum, and there was no plane to dissect between the gallbladder and the liver. There was quite a bit of bleeding from the dissection that we did, and I was confident that if we continued to blaze through this and remove the gallbladder that we would generate a tremendous amount of bleeding, so I aborted further attempts to dissect the gallbladder and decided to simply put a 20 Malecot catheter through the anterior abdominal wall into the fundus of the gallbladder, which we did. I then used a silk stitch to try to close the anterior 33% opening of the gallbladder between the gallbladder wall and the anterior abdominal wall. It did not come together easily because of the rigidity of the wall of the gallbladder. So, it was not closed watertight. We did take a biopsy of the gallbladder wall. We then placed a Talat drain within the subhepatic space, bringing it out the anterior axillary line trocar site to drain any bile leak that would occur. We secured these tubes at the skin level with 2-0 silks. We actually used a Louie-Austin wound closure for the epigastrium. We then desufflated and removed our trocars. We closed the fascia at the umbilicus with 2-0 Polysorb fascial stitch and closed the skin at the other trocar sites with 4-0 Polysorb subcuticular stitches. Sterile dressings were applied. He tolerated the procedure satisfactorily. Estimated blood loss was about 100 mL. He was sent to the recovery room in stable condition. cc: MD Marcelino Jackson MD
[2019-10-11] MEDS ORDERED: NORCO-10 ONE (16:42)
[2019-10-11] MEDS ORDERED: NORCO-10 PO PRN (16:45)
--- NOTE | 2019-10-11 18:05 | GENERAL SURGERY PROGRESS NOTE ---
DATE: 10/11/2019 It is 5:20 p.m. He is awake and alert. His hemodynamics were okay. I discussed the fact we had to put in a cholecystostomy tube and we also have a drain there. We will check his labs in the morning. Dr. Means will cover the weekend. cc: MD Marcelino Jackson MD
[2019-10-11] MEDS ORDERED: NS 1,000 ML ONE ×3 (19:26→20:57)
[2019-10-11] MEDS ORDERED: LEVOPHED 8 MG in D5 1/2 NS 250 ML IV SCH ×2 (19:30→20:00)
[2019-10-11 19:40] LABS: BASO# 0.02 X1000 (0.0-0.2); BASO% 0.2 % (0.0-0.8); EOS# 0.04 X1000 (0.0-0.7); EOS% 0.4 % (0.0-10.0); HEMATOCRIT 25.5 % (42.0-52.0); HEMOGLOBIN 7.7 g/dL (14.0-18.0); IMM GRAN# 0.03 X1000 (0.0-0.04); IMM GRAN% 0.3 % (0.0-0.5); LYMPH# 2.68 X1000 (1.2-3.4); MCH 29.8 PG (27-31); MCHC 30.2 g/dL (33-37); MCV 98.8 FL (81-99); MONO# 0.25 X1000 (0.11-0.59); MONO% 2.6 % (1.7-9.3); MPV 10.4 FL (7.4-10.4); NEUT# 6.56 X1000 (1.4-6.5); NEUT% 68.5 % (42.2-75.2); PLT 155 X1000 (130-400); RBC 2.58 XMIL (4.7-6.1); RDW 15.9 % (11.5-14.5); WBC 9.58 X1000 (4.8-10.8)
[2019-10-11 19:47] LABS: INR 2.01; PROTIME 23.2 Seconds (11.0-16.0)
[2019-10-11] MEDS ORDERED: NS 1,000 ML IV ONE ×2 (19:57→20:54)
[2019-10-11 20:01] LABS: ALB/GLOB RATIO 0.9; ALBUMIN 2.6 g/dL (3.5-5.0); CALCIUM 8.3 mg/dL (8.8-10.2); CREATININE 1.2 mg/dL (0.7-1.2); POTASSIUM 3.6 mmol/L (3.5-5.1); TOTAL BILIRUBIN 1.09 mg/dL (0.20-1.00); TOTAL PROTEIN 5.4 g/dL (6.3-8.3)
[2019-10-11] MEDS ORDERED: NS 1,000 ML IV SCH (21:00)
[2019-10-11] MEDS ORDERED: PERIDEX MT SCH (21:00)
[2019-10-11] MEDS ORDERED: NEO-SYNEPHRINE 50 MG in NS 250 ML IV SCH (21:45)
--- NOTE | 2019-10-11 21:46 | Diag Imaging Result Doc PS360 ---
CHEST-PORTABLE - 10/11/2019 INDICATION: central line placement COMPARISON: 10/06/2019 FINDINGS: There is a right central line in good position. The tip is at the lower SVC. No pneumothorax. Stable cardiomegaly. Stable consolidation of the left lung base. IMPRESSION: No complication from line placement. Electronically signed by Cristian Garcia 10/11/2019 9:43 PM
[2019-10-11] MEDS ORDERED: NS 500 ML IV ONE ×2 (22:09→23:16)
[2019-10-11] MEDS ORDERED: NS 500 ML ONE (23:17)
[2019-10-11 23:26] LABS: BILIRUBIN URINE NEGATIVE (NEGATIVE); BLOOD URINE NEGATIVE (NEGATIVE); COLOR YELLOW; GLUCOSE URINE NEGATIVE (NEGATIVE); KETONE URINE NEGATIVE (NEGATIVE); LEUKOCYTES URINE NEGATIVE (NEGATIVE); NITRITE URINE NEGATIVE (NEGATIVE); PH URINE 5.5; PROTEIN URINE NEGATIVE (NEGATIVE); SP GRAVITY URINE 1.015; TURBIDITY URINE CLEAR (CLEAR); URINE SOURCE CATH; UROBILINOGEN URINE NORMAL (NORMAL)
[2019-10-11 23:28] LABS: UR EPITHELIAL CELLS <10 /HPF (<10); URINE BACTERIA NEGATIVE /HPF; URINE RBC <10 /HPF (<10); URINE WBC <10 /HPF (<10)
[2019-10-11 23:40] VITALS: BP 66/41
[2019-10-11] MEDS ORDERED: ZOFRAN IV PRN (23:54)
--- NOTE | 2019-10-11 23:57 | EKG Report ---
Test Performed on : 10/11/2019 10:22:25 PM Test Reason : EVAL Blood Pressure : / mmHG Vent. Rate : 095 BPM Atrial Rate : 000 BPM P-R Int : 000 ms QRS Dur : 148 ms QT Int : 408 ms P-R-T Axes : 000 -52 134 degrees QTc Int : 512 ms Undetermined rhythm Left axis deviation Right bundle branch block Inferior infarct , age undetermined T wave abnormality, consider lateral ischemia Abnormal ECG When compared with ECG of 06-OCT-2019 16:56, (Unconfirmed) Current undetermined rhythm precludes rhythm comparison, needs review Confirmed by Shelby ROBERTS, Jose Alfredo ([id number]) on 10/14/2019 8:29:09 AM
[2019-10-12] MEDS ORDERED: NS 1,000 ML IV ONE (00:05)
[2019-10-12 00:19] LABS: BASO# 0.02 X1000 (0.0-0.2); BASO% 0.2 % (0.0-0.8); EOS# 0.04 X1000 (0.0-0.7); EOS% 0.4 % (0.0-10.0); HEMATOCRIT 20.4 % (42.0-52.0); IMM GRAN# 0.21 X1000 (0.0-0.04); IMM GRAN% 2.3 % (0.0-0.5); LYMPH# 2.54 X1000 (1.2-3.4); LYMPH% 27.4 % (20.5-51.1); MCH 28.6 PG (27-31); MCHC 29.4 g/dL (33-37); MCV 97.1 FL (81-99); MONO# 0.48 X1000 (0.11-0.59); MONO% 5.2 % (1.7-9.3); MPV 10.2 FL (7.4-10.4); NEUT# 5.97 X1000 (1.4-6.5); NEUT% 64.5 % (42.2-75.2); PLT 115 X1000 (130-400); RDW 16.1 % (11.5-14.5); WBC 9.26 X1000 (4.8-10.8)
[2019-10-12] MEDS ORDERED: NS 1,000 ML ONE (00:21)
[2019-10-12] MEDS ORDERED: NS 1,000 ML IV SCH (03:45)
--- NOTE | 2019-10-12 06:01 | DISCHARGE SUMMARY ---
ADMISSION DATE: 10/06/2019 DISCHARGE DATE: 10/12/2019 As the on-call physician, I was contacted in regards to deterioration of patient's clinical status. Upon my arrival, patient was noted to be in PEA. ACLS protocol had been initiated. Despite multiple rounds of medication and aggressive ACLS intervention, unfortunately, patient was unable to survive his current illness. Ultimately, patient was pronounced at 1:02 in the morning on 10/12/2019. Patient's family was in the waiting room, and a family conference was held. Support Services were provided. The patient's body will be released to home of choice. cc: MD Marcelino Marin MD
[2019-10-12] MEDS ORDERED: PROTONIX PO SCH (07:00)
== END 2019-10-12 01:02 | disposition expired | DRG 444 ==
LOC: P.ED 15:38 → 4N 18:17 → SUPCPDRO 18:17 → SUATTDRO 18:17 → 4N 18:47 → ICU 10-11 20:03
PROVIDERS: ADMIT Internal Medicine; ATTEND Internal Medicine